=== PATIENT | female | born 1975 ===

== ENCOUNTER → 2017-11-14 | Outpatient (CLI) | payer OTHER | END | disposition home or self-care (01) | LOC: PPHC LAB 15:01 | DX: Z02.0 Encounter for examination for admission to educational institution (principal) ==

== ENCOUNTER 2018-03-28 11:19 | Emergency (ER) | payer OTHER ==
[~2018-03-28] VITALS: Ht 160 cm; Wt 61.2 kg
[~2018-03-28 11:19] MED LIST: CLARITIN-D 121 EACH PO
== END 2018-03-28 13:39 | disposition home or self-care (01) ==
LOC: ER 11:19
DX: J03.90 Acute tonsillitis, unspecified (principal); H61.22 Impacted cerumen, left ear

== ENCOUNTER 2018-08-21 07:15 | Emergency (ER) | payer OTHER ==
[~2018-08-21] VITALS: Ht 160 cm; Wt 63.5 kg
== END 2018-08-21 12:35 | disposition home or self-care (01) ==
LOC: ER 07:15
DX: S50.861A Insect bite (nonvenomous) of right forearm, initial encounter (principal); W57.XXXA Bitten or stung by nonvenomous insect and other nonvenomous arthropods, initial encounter; Y93.89 Activity, other specified; Y92.89 Other specified places as the place of occurrence of the external cause; Y99.8 Other external cause status

== ENCOUNTER 2019-12-07 14:03 | Outpatient (CLI) | payer OTHER | END 2019-12-07 15:45 | disposition home or self-care (01) | LOC: MRI 14:03 | DX: M50.30 Other cervical disc degeneration, unspecified cervical region (principal); M99.81 Other biomechanical lesions of cervical region | CPT/HCPCS: 72141 ==